=== PATIENT | female | born 2000 | race Caucasian/White ===

== ENCOUNTER 2024-06-07 19:28 | Emergency (ER) | payer BC ==
[~2024-06-07] VITALS: Ht 172.7 cm; Wt 74.8 kg
[2024-06-07 19:45] VITALS: BP 136/81; TEMP 98.5; O2SAT 99
[2024-06-07] MEDS ORDERED: METO5TAB87 PO (20:54)
== END 2024-06-07 21:14 | disposition home or self-care (01) ==
LOC: ER 19:28
DX: S06.0X0A Concussion without loss of consciousness, initial encounter (principal); Y04.0XXA Assault by unarmed brawl or fight, initial encounter; Y93.89 Activity, other specified; Y92.89 Other specified places as the place of occurrence of the external cause; Y99.8 Other external cause status